=== PATIENT | female | born 1930 | race Caucasian/White ===

== ENCOUNTER 2019-06-17 16:04 | Inpatient (IN) | payer OTHER ==
[~2019-06-17] VITALS: Ht 162.6 cm; Wt 46.7 kg
[2019-06-17 16:09] VITALS: BP_SYST 135
--- NOTE | 2019-06-17 16:15 | NUR ---
Placed in room 03 . Placed on environmental monitoring technician, blood pressure machine and pulse oximeter. To gown for exam. Side rails up. Report given to Lauren JI.
[2019-06-17] MEDS ORDERED: ACET325T53 PO (16:20)
[2019-06-17] MEDS ORDERED: BACL10TA PO (16:20)
[2019-06-17] MEDS ORDERED: FER300L PO (16:20)
[2019-06-17] MEDS ORDERED: POTA8TAB4 PO (16:20)
[2019-06-17] MEDS ORDERED: AMI200 PO (16:20)
[2019-06-17] MEDS ORDERED: LEVA1.2527 INH ×2 (16:20)
[2019-06-17] MEDS ORDERED: FOLI-43 PO (16:20)
[2019-06-17] MEDS ORDERED: METO25TA6 PO (16:20)
[2019-06-17] MEDS ORDERED: ASCO500C18 PO (16:20)
[2019-06-17] MEDS ORDERED: SAW/1TAB2 PO (16:20)
[2019-06-17] MEDS ORDERED: FLUO15CR TP (16:20)
--- NOTE | 2019-06-17 16:20 | NUR ---
Medication reconciliation completed with information provided by ORQUE JARVIS. Any prior medication reconciliation on file was reviewed and corrected.
[2019-06-17] MEDS ORDERED: NS 1000 ML IV.SOLN IV ONE (16:30)
--- NOTE | 2019-06-17 16:30 | NUR ---
Pt awake, alert and oriented x4. Pt states that she has had increase in pain bilaterally. pt states that she has had increase in pain over the past few days, and her doctor stated that she had recieved labs back indicating the need for blood transfusion. Pt was transferred from current facility to our ED in order to have re-evaluation and possible blood transfusion. Pt denies shortness of breath, nausea, vomiting, chest pain or any other complaint at this time. Pt states that she cannot take traditional pain meds due to allergy and requested tylenol. Pt resting in bed comfortably, given blankets for comfort.
--- NOTE | 2019-06-17 16:55 | NUR ---
MARK Sandoval at bedside examining patient.
[2019-06-17 17:06] LABS: EOSINOPHILS # (AUTO) 0.1 K/uL (0.0-0.4); HEMOGLOBIN 7.3 g/dL (12.0-16.0); LYMPHOCYTES # (AUTO) 0.6 K/uL (1.0-5.5); WHITE BLOOD COUNT (AUTO) 6.9 K/uL (4.8-10.8)
[2019-06-17 17:11] LABS: BASOPHILS % (AUTO) 0.4 % (0.0-2.0); EOSINOPHILS % (AUTO) 1.4 % (0.0-4.0); HEMATOCRIT 23.4 % (36-48); LYMPHOCYTES % (AUTO) 8.8 % (20.5-51.5); MEAN CORPUSCULAR HEMOGLOBIN 23 pg (27-31); MEAN CORPUSCULAR HGB CONC 31 % (32-36); MEAN CORPUSCULAR VOLUME 74 fL (79.0-98.0); MONOCYTES # (AUTO) 0.5 K/uL (0.0-1.0); MONOCYTES % (AUTO) 6.8 % (1.7-9.3); NEUTROPHILS # (AUTO) 5.7 K/uL (1.8-7.7); NEUTROPHILS % (AUTO) 82.6 % (40.0-70.0); PLATELET COUNT (AUTO) 312 K/uL (130-430); RED BLOOD CELL COUNT(AUTO) 3.16 MIL/uL (4.2-6.2); RED CELL DISTRIBUTION WIDTH 20.2 % (9.0-15.0)
[2019-06-17 17:13] LABS: INR 1.1 (0.8-1.2); PROTHROMBIN TIME 10.8 SECS (9.5-12.5)
[2019-06-17 17:14] LABS: ANION GAP 4 (5-15); CALCIUM 8.6 mg/dL (8.4-11.0); CHLORIDE 102 mmol/L (98-107); CREATININE 0.62 mg/dL (0.55-1.30); GLUCOSE 107 mg/dL (70-99); POTASSIUM 3.8 mmol/L (3.5-5.1); SODIUM SERUM 133 mmol/L (136-145); UREA NITROGEN, BLOOD 17 mg/dL (8-21)
[2019-06-17 17:20] LABS: ALANINE AMINOTRANSFERASE 7 U/L (12-78); ALBUMIN 1.9 g/dL (3.4-4.8); ASPARTATE AMINOTRANSFERASE 11 U/L (10-37); TOTAL BILIRUBIN 0.2 mg/dL (0.0-1.0)
--- NOTE | 2019-06-17 17:20 | NUR ---
Pt Given additional blanket for comfort. AC adjusted to help pt maintain temperature
[2019-06-17] MEDS ORDERED: ACETAMINOPHEN 500 MG TABLET PO ONE (17:30)
[2019-06-17] MEDS ORDERED: NACL 0.9% 1,000 ML IV ONE (17:30)
--- NOTE | 2019-06-17 18:45 | NUR ---
Patient will be admitted to care of Dr. Moore. Admitted to Med Surg unit. Will go to room 103 A. Belongings list completed. Summary report printed. Report will be given at bedside.
--- NOTE | 2019-06-17 19:44 | NUR ---
Transfer to [facility]. IV present no sign or symptom of infiltration. Report Given at destination, bedside by MARGY Still. Pt aware of admission and given opportunity for questions/concerns. tranported via gurney. VSS
--- NOTE | 2019-06-17 20:02 | NUR ---
ADMISSION NOTE Received patient from ER via kenna, received report from MARGY GLASER. Patient admitted with diagnosis of ANEMIA. Patient oriented to hospital routine, call light, toileting and safety-patient verbalized understanding.
[2019-06-17 20:03] VITALS: BP_SYST 140
--- NOTE | 2019-06-17 20:10 | NUR ---
ROUNDS PATIENT RESTING COMFORTABLY IN BED, VITALS STABLE, NO COMPLAINTS OF PAIN AND DISCOMFORT AT THIS TIME. ADMISSION ASSESSMENT DONE AND DOCUMENTED. SEE FLOWSHEET. NEEDS ATTENDED TO. SAFETY AND FALL MEASURES IN PLACED. BED IN LOW AND LOCKED POSITION. CALL LIGHT PLACED WITHIN REACH.
[2019-06-17] MEDS ORDERED: LevALBUTEROL HCL 1.25 MG/0.5 ML *CONC.* VIAL.NEB (XOPENEX CONC.) INH PRN (20:15)
[2019-06-17] MEDS ORDERED: FLU VACC TS2019(65UP)/MF59C/PF 45 MCG/0.5 ML SYRINGE I.M. PRN (20:30)
[2019-06-17] MEDS ORDERED: LevALBUTEROL HCL 1.25 MG/0.5 ML *CONC.* VIAL.NEB (XOPENEX CONC.) INH SCH (21:00)
[2019-06-17] MEDS: FERROUS SULFATE 300 MG/5 ML UDC PO SCH (21:05)
[2019-06-17] MEDS: POTASSIUM CHLORIDE 8 MEQ TABLET.SA PO SCH (21:05)
[2019-06-17] MEDS: BACLOFEN 10 MG TABLET PO SCH (21:05)
[2019-06-17] MEDS: FOLIC ACID 1 MG TABLET PO SCH (21:05)
[2019-06-17] MEDS: METOPROLOL TARTRATE 25 MG TABLET PO SCH (21:07)
[2019-06-17 22:00] VITALS: BP_SYST 121
[2019-06-17] MEDS: ACETAMINOPHEN 325 MG TABLET PO SCH (22:17)
[2019-06-17] MEDS ORDERED: KCL 20 mEq in D5/0.45NS 1000mL 1,000 ML IV ONE (22:23)
[2019-06-17] MEDS: POTASSIUM CHLORIDE 20 MEQ in D5/0.45 NS 1,000 ML IV SCH (22:34)
--- NOTE | 2019-06-17 23:14 | NUR ---
BLOOD TRANSFUSION IST UNIT PRBC GIVEN ORDERED, VITALS STABLE, NO TRANSFUSION REACTION NOTED. NEEDS ATTENDED TO. CALL LIGHT PLACED WITHIN REACH.
[2019-06-18 00:28] VITALS: BP_SYST 121
--- NOTE | 2019-06-18 02:35 | NUR ---
BLOOD TRANSFUSION 2ND UNIT PRBC GIVEN ORDERED, VITALS STABLE, NO TRANSFUSION REACTION NOTED. WILL CONTINUE TO MONITOR.
[2019-06-18] MEDS: ACETAMINOPHEN 325 MG TABLET PO SCH ×2 (03:08→09:15)
--- NOTE | 2019-06-18 04:05 | NUR ---
PATIENT RESTING: Patient resting quietly. No acute distress noted. Vital signs within normal range.
--- NOTE | 2019-06-18 06:39 | NUR ---
CLOSING NOTES PATIENT AWAKE, VITALS STABLE, NO COMPLAINTS AT THIS TIME. ALL NEEDS ATTENDED TO. SAFETY MEASURES MAINTAINED. CALL LIGHT PLACED WITHIN REACH.
--- NOTE | 2019-06-18 07:30 | NUR ---
Opening note Patient resting in bed at this time, A/Ox4, no complaints of pain. Iv patent, intact, and infusing fluids as ordered. No adverse side effects noted. No infiltration noted. On ABIMBOLA mattress. On safety and aspiration precautions, HOB kept elevated, 3 side rails up, bed in lowest position, call light within reach. Patient in stable condition. Will continue to monitor.
[2019-06-18] MEDS: POTASSIUM CHLORIDE 20 MEQ in D5/0.45 NS 1,000 ML IV SCH ×2 (08:08→18:53)
[2019-06-18 08:16] VITALS: BP_SYST 165
[2019-06-18 08:35] LABS: EOSINOPHILS % (AUTO) 0.9 % (0.0-4.0); HEMATOCRIT 34.9 % (36-48); HEMOGLOBIN 11.2 g/dL (12.0-16.0); LYMPHOCYTES # (AUTO) 0.7 K/uL (1.0-5.5); LYMPHOCYTES % (AUTO) 12.5 % (20.5-51.5); MEAN CORPUSCULAR HEMOGLOBIN 25 pg (27-31); MEAN CORPUSCULAR HGB CONC 32 % (32-36); MONOCYTES # (AUTO) 0.3 K/uL (0.0-1.0); MONOCYTES % (AUTO) 5.2 % (1.7-9.3); NEUTROPHILS # (AUTO) 4.2 K/uL (1.8-7.7); NEUTROPHILS % (AUTO) 81.4 % (40.0-70.0); PLATELET COUNT (AUTO) 281 K/uL (130-430); RED BLOOD CELL COUNT(AUTO) 4.47 MIL/uL (4.2-6.2); RED CELL DISTRIBUTION WIDTH 19.6 % (9.0-15.0); WHITE BLOOD COUNT (AUTO) 5.2 K/uL (4.8-10.8)
[2019-06-18 08:38] LABS: MEAN CORPUSCULAR VOLUME 78 fL (79.0-98.0)
[2019-06-18 08:51] LABS: ANION GAP 6 (5-15); CALCIUM 8.5 mg/dL (8.4-11.0); CHLORIDE 105 mmol/L (98-107); CREATININE 0.48 mg/dL (0.55-1.30); GLUCOSE 93 mg/dL (70-99); POTASSIUM 3.4 mmol/L (3.5-5.1); SODIUM SERUM 135 mmol/L (136-145); UREA NITROGEN, BLOOD 9 mg/dL (8-21)
[2019-06-18 08:56] LABS: TOTAL IRON BIND. CAPACITY 205 ug/dL (250-450)
--- NOTE | 2019-06-18 09:00 | NUR ---
medications All morning medications given as ordered. no adverse side effects noted. No nausea, no vomiting noted.
[2019-06-18] MEDS: TRIAMCINOLONE ACETONIDE 0.1% 15 GM CREAM.GM. TP SCH (09:09)
[2019-06-18] MEDS: FERROUS SULFATE 300 MG/5 ML UDC PO SCH ×3 (09:12→20:42)
[2019-06-18] MEDS: AMIODARONE HCL 200 MG TABLET PO SCH (09:12)
[2019-06-18] MEDS: ASCORBIC ACID 500 MG TABLET PO SCH (09:12)
[2019-06-18] MEDS: POTASSIUM CHLORIDE 8 MEQ TABLET.SA PO SCH ×2 (09:13→20:42)
[2019-06-18] MEDS: METOPROLOL TARTRATE 25 MG TABLET PO SCH ×2 (09:13→20:43)
[2019-06-18] MEDS: BACLOFEN 10 MG TABLET PO SCH ×3 (09:13→20:42)
[2019-06-18] MEDS: FOLIC ACID 1 MG TABLET PO SCH ×2 (09:13→20:42)
--- NOTE | 2019-06-18 09:30 | NUR ---
DCPA and SS contact: BACK SHOE WORKER met with Pt. at bed side for DC planning assessment. She was alert and oriented. Pt. was residing at [facility] in [place] ,she would like to return there upon discharge. Pt. has insurance through [employer], [employer] supplemental income. Pt. has support from her who is her emergency contact and DPMUKESH Beltran . Pt. stated that she has a wheelchair and walker but is not utilizing either due pain, not ambulating as a result, and is dependent for her ADLs at this time. She has used [facility] in the past, she is willing to try a different agency, has no preference. No SS inquiry or concern at this time. DCP/CM/SS will remain available as needed.
--- NOTE | 2019-06-18 11:00 | NUR ---
Skin care Patient noted with BM, skin care provided, linens changed. patient in stable condition.
[2019-06-18 11:27] VITALS: BP_SYST 148
--- NOTE | 2019-06-18 11:50 | NUR ---
Stool sample stool collected for C diff, sent to lab, skin care provided. Linens changed. patient in stable condition.
--- NOTE | 2019-06-18 13:00 | NUR ---
Lunch patient sitting up in bed at this time, eating lunch. tolerating well. No nausea, no vomiting noted. No complaints of abdominal pain.
[2019-06-18] MEDS ORDERED: POTASSIUM CHLORIDE 20 MEQ TAB.PRT.SR PO ONE (14:00)
[2019-06-18] MEDS: ACETAMINOPHEN 325 MG TABLET PO PRN ×3 (14:52→22:49)
--- NOTE | 2019-06-18 14:55 | NUR ---
Flu shot patient stated she would like the flu shot, at bedside. No adverse side effects noted. no complaints of pain.
[2019-06-18 15:20] VITALS: BP_SYST 147
--- NOTE | 2019-06-18 17:09 | NUR ---
bowel movement patient noted with bowel movement, loose, greenish in color. Skin care provided. linens changed.
--- NOTE | 2019-06-18 18:58 | NUR ---
Closing note Patient resting in bed at this time, A/Ox4, complaining of pain. medication given as ordered. No adverse side effects noted. Iv patent, intact, and infusing fluids as ordered. No adverse side effects noted. No infiltration noted. On ABIMBOLA mattress. On safety and aspiration precautions, HOB kept elevated, 3 side rails up, bed in lowest position, call light within reach. Patient in stable condition. All needs met.
--- NOTE | 2019-06-18 19:35 | NUR ---
ROUNDS PATIENT AWAKE, WATCHING TV, VITALS STABLE, DENIES ANY PAIN AND DISCOMFORT AT THIS TIME. ASSESSMENT DONE AND DOCUMENTED. SEE FLOWSHEET. NEEDS ATTENDED TO. SAFETY AND FALL PRECAUTION MEASURES IN PLACED. CALL LIGHT PLACED WITHIN REACH.
[2019-06-18] MEDS: LevALBUTEROL HCL 1.25 MG/0.5 ML *CONC.* VIAL.NEB (XOPENEX CONC.) INH SCH (19:40)
[2019-06-19 00:06] VITALS: BP_SYST 142
--- NOTE | 2019-06-19 00:12 | NUR ---
PATIENT RESTING: Patient resting quietly. No acute distress noted. Vital signs within normal range.
--- NOTE | 2019-06-19 04:10 | NUR ---
ROUNDS PATIENT ASLEEP, RESPIRATIONS EVEN AND UNLABORED, NO PAIN AND DISCOMFORT NOTED. WILL CONTINUE TO MONITOR.
[2019-06-19] MEDS: ACETAMINOPHEN 325 MG TABLET PO PRN ×3 (05:00→14:56)
--- NOTE | 2019-06-19 06:53 | NUR ---
CLOSING NOTES PATIENT AWAKE, VITALS STABLE, NO PAIN AT THIS TIME. ALL NEEDS ATTENDED TO. DRESSING ON BOTH LOWER EXTREMITIES DONE. SAFETY MEASURES MAINTAINED. CALL LIGHT PLACED WITHIN REACH.
[2019-06-19] MEDS: LevALBUTEROL HCL 1.25 MG/0.5 ML *CONC.* VIAL.NEB (XOPENEX CONC.) INH SCH (07:12)
--- NOTE | 2019-06-19 07:28 | NUR ---
Opening note Patient resting in bed at this time, A/Ox4, no complaints of pain. Iv patent, intact, and infusing fluids as ordered. No adverse side effects noted. No infiltration noted. On ABIMBOLA mattress. On contact isolation precautions for history of C diff. Current C diff results pending. Dressings on lower extremities intact. On safety, and aspiration precautions, HOB kept elevated, 3 side rails up, bed in lowest position, call light within reach. Patient in stable condition. Will continue to monitor.
[2019-06-19 08:00] VITALS: BP_SYST 139
--- NOTE | 2019-06-19 09:10 | NUR ---
medications All morning medications given as ordered. no adverse side effects noted. no nausea, no vomiting noted.
[2019-06-19] MEDS: FERROUS SULFATE 300 MG/5 ML UDC PO SCH ×2 (09:24→14:57)
[2019-06-19] MEDS: AMIODARONE HCL 200 MG TABLET PO SCH (09:25)
[2019-06-19] MEDS: ASCORBIC ACID 500 MG TABLET PO SCH (09:25)
[2019-06-19] MEDS: POTASSIUM CHLORIDE 8 MEQ TABLET.SA PO SCH (09:25)
[2019-06-19] MEDS: FOLIC ACID 1 MG TABLET PO SCH (09:25)
[2019-06-19] MEDS: BACLOFEN 10 MG TABLET PO SCH ×2 (09:25→14:55)
[2019-06-19] MEDS: METOPROLOL TARTRATE 25 MG TABLET PO SCH (09:27)
[2019-06-19 09:32] LABS: BILIRUBIN,URINE NEGATIVE (NEGATIVE); BLOOD, URINE NEGATIVE (NEGATIVE); CLARITY/URINE CLEAR (CLEAR); COLOR,URINE YELLOW (YELLOW); GLUCOSE,URINE NEGATIVE (NEGATIVE); KETONES,URINE NEGATIVE (NEGATIVE); LEUKOCYTE ESTERASE ,URINE 1+ (NEGATIVE); NITRITE, URINE POSITIVE (NEGATIVE); PH,URINE 5.5 (5.0-8.0); PROTEIN URINE NEGATIVE (NEGATIVE); UROBILINOGEN,URINE 0.2 (0.2-1.0)
[2019-06-19 09:44] LABS: BACTERIA,URINE MANY /HPF (None Seen); RBC,URINE 0-3 /HPF (0-3); WBC,URINE 20-50 /HPF (0-3)
[2019-06-19] MEDS: TRIAMCINOLONE ACETONIDE 0.1% 15 GM CREAM.GM. TP SCH (10:00)
--- NOTE | 2019-06-19 10:29 | NUR ---
Nutrition Update Elio Scale 15 noted. Pt admitted for anemia. Diet: regular BMI: 19.2 kg/m2 RD to follow per nutrition care standards.
--- NOTE | 2019-06-19 11:30 | NUR ---
bowel movement patient noted with 1 bowel movement. Skin care provided. Linens changed. No other needs at this time.
[2019-06-19 12:00] VITALS: BP_SYST 139
[2019-06-19] MEDS: POTASSIUM CHLORIDE 20 MEQ in D5/0.45 NS 1,000 ML IV SCH (12:07)
--- NOTE | 2019-06-19 13:00 | NUR ---
Lunch patient sitting up in bed, eating lunch, tolerating well. No nausea, no vomiting noted.
--- NOTE | 2019-06-19 15:00 | NUR ---
Dr. linares rounds Patient resting in bed. MD at bedside, at bedside. patient to be discharged today. patient in stable condition.
--- NOTE | 2019-06-19 15:30 | NUR ---
Discharge Planning: DCP faxed pt referral to [facility] (f [phone] P [phone]). DCP also left message patient was discharging today after reviewing inquiry please call nurse station at [phone] ask for charge nurse.
--- NOTE | 2019-06-19 15:54 | NUR ---
Dietitian Recommendations * Recommend regular diet w/ Ensure Enlive TID (ONS provides 1050 kcal/day, 60 gm protein/day) * Encourage increase PO intakes LP, RD Please refer to Nutrition Assessment for details. Addendum: 06/19/19 at [address] Amended: Links added.
[2019-06-19 16:49] VITALS: BP_SYST 142; BP_SYST 146
[2019-06-19 18:19] VITALS: BP_SYST 142
--- NOTE | 2019-06-19 18:45 | NUR ---
PT TRANSFERRED Report given to kristy at [place]. Transfer packet with Transfer Orders and Medication Reconciliation form given to EMT with report. Exitcare provided. [facility] ID band removed, replaced with ID band with pt's name and . IV catheter removed, intact and dressing applied, no active bleeding. All belongings sent with patient. Patient left floor via gurney escorted by EMT in no distress.
== END 2019-06-19 18:45 | DRG 811 ==
LOC: SED 16:04 → SMU 18:40
PROVIDERS: ADMIT Family Medicine; ATTEND Family Medicine
PROC: 30233N1 Transfusion of Nonautologous Red Blood Cells into Peripheral Vein, Percutaneous Approach (ICD-10-PCS; principal; 2019-06-17)
DX: D50.9 Iron deficiency anemia, unspecified (principal); E43 Unspecified severe protein-calorie malnutrition; Z68.1 Body mass index [BMI] 19.9 or less, adult; I48.91 Unspecified atrial fibrillation; E86.0 Dehydration; I10 Essential (primary) hypertension; M19.90 Unspecified osteoarthritis, unspecified site; Z90.11 Acquired absence of right breast and nipple; Z88.1 Allergy status to other antibiotic agents; Z88.2 Allergy status to sulfonamides; Z91.040 Latex allergy status; Z79.899 Other long term (current) drug therapy; Z90.49 Acquired absence of other specified parts of digestive tract
CPT/HCPCS: 36415; 36430; 71045; 80048; 80053; 81000-TC; 83540-TC; 83550-TC; 83605; 85025; 85610-TC; 85730-TC; 86886; 86900; 86901; 86920; 87040-TC; 87081; 87086; 87186-TC; 87230-TC; 93005; 94640; 94760; 99285; J3480; J7030; J7050; J7612; P9021

== ENCOUNTER 2019-07-07 17:10 | Inpatient (IN) | payer OTHER ==
[~2019-07-07] VITALS: Ht 165.1 cm; Wt 44.9 kg
[2019-07-07] MEDS: D5/0.45 NS 1,000 ML IV SCH (05:37)
[2019-07-07 17:10] VITALS: BP_SYST 143
[~2019-07-07 17:10] MED LIST: ACET325T53 PO; AMI200 PO; ASCO500C18 PO; BACL10TA PO; FER300L PO; FLUO15CR TP; FOLI-43 PO; LEVA1.2527 INH; METO25TA6 PO; POTA8TAB4 PO; SAW/1TAB2 PO
[2019-07-07] MEDS ORDERED: NS 500 ML IV ONE ×2 (17:30→19:30)
[2019-07-07 17:56] LABS: BASOPHILS % (AUTO) 0.1 % (0.0-2.0); EOSINOPHILS % (AUTO) 0.7 % (0.0-4.0); HEMATOCRIT 30.5 % (36-48); HEMOGLOBIN 9.7 g/dL (12.0-16.0); LYMPHOCYTES # (AUTO) 0.7 K/uL (1.0-5.5); LYMPHOCYTES % (AUTO) 9.4 % (20.5-51.5); MEAN CORPUSCULAR HEMOGLOBIN 25 pg (27-31); MEAN CORPUSCULAR HGB CONC 32 % (32-36); MEAN CORPUSCULAR VOLUME 78 fL (79.0-98.0); MONOCYTES # (AUTO) 0.5 K/uL (0.0-1.0); MONOCYTES % (AUTO) 7.1 % (1.7-9.3); NEUTROPHILS % (AUTO) 82.7 % (40.0-70.0); PLATELET COUNT (AUTO) 179 K/uL (130-430); RED BLOOD CELL COUNT(AUTO) 3.92 MIL/uL (4.2-6.2); RED CELL DISTRIBUTION WIDTH 19.5 % (9.0-15.0); WHITE BLOOD COUNT (AUTO) 7.2 K/uL (4.8-10.8)
[2019-07-07 18:06] LABS: ANION GAP 10 (5-15); CALCIUM 11.8 mg/dL (8.4-11.0); CHLORIDE 103 mmol/L (98-107); CREATININE 0.61 mg/dL (0.55-1.30); GLUCOSE 87 mg/dL (70-99); POTASSIUM 3.1 mmol/L (3.5-5.1); SODIUM SERUM 140 mmol/L (136-145); UREA NITROGEN, BLOOD 11 mg/dL (8-21)
[2019-07-07 18:10] LABS: INR 1.2 (0.8-1.2); PROTHROMBIN TIME 11.8 SECS (9.5-12.5)
[2019-07-07 18:11] LABS: ALANINE AMINOTRANSFERASE 12 U/L (12-78); ALBUMIN 1.9 g/dL (3.4-4.8); ASPARTATE AMINOTRANSFERASE 13 U/L (10-37); TOTAL BILIRUBIN 0.4 mg/dL (0.0-1.0)
[2019-07-07] MEDS ORDERED: CALCITONIN SALMON,SYNTHETIC 200 UNITS/ML VIAL IM ONE (19:00)
[2019-07-07] MEDS ORDERED: KCL 20 mEq in NS 1000 mL 1,000 ML IV ONE (19:15)
[2019-07-07] MEDS ORDERED: ONDANSETRON HCL 4 MG/2 ML VIAL IVP PRN (22:00)
[2019-07-07] MEDS ORDERED: LORazepam 2 MG/ML VIAL IVP PRN (22:00)
[2019-07-07] MEDS ORDERED: MORPHINE 4 MG/ML INJ. SYRINGE IVP PRN (22:00)
[2019-07-07 22:02] VITALS: BP_SYST 115
[2019-07-08 01:37] VITALS: BP_SYST 120
[2019-07-08] MEDS ORDERED: DILTIAZEM HCL 25 MG/5 ML VIAL IVP PRN (03:30)
[2019-07-08] MEDS: D5/0.45 NS 1,000 ML IV SCH (07:00)
[2019-07-08 07:24] LABS: EOSINOPHILS % (AUTO) 0.2 % (0.0-4.0); HEMATOCRIT 29.5 % (36-48); HEMOGLOBIN 9.5 g/dL (12.0-16.0); LYMPHOCYTES # (AUTO) 0.7 K/uL (1.0-5.5); LYMPHOCYTES % (AUTO) 8.5 % (20.5-51.5); MEAN CORPUSCULAR HEMOGLOBIN 25 pg (27-31); MEAN CORPUSCULAR HGB CONC 32 % (32-36); MEAN CORPUSCULAR VOLUME 78 fL (79.0-98.0); MONOCYTES # (AUTO) 0.5 K/uL (0.0-1.0); MONOCYTES % (AUTO) 6.1 % (1.7-9.3); NEUTROPHILS % (AUTO) 85.2 % (40.0-70.0); PLATELET COUNT (AUTO) 193 K/uL (130-430); RED BLOOD CELL COUNT(AUTO) 3.81 MIL/uL (4.2-6.2); RED CELL DISTRIBUTION WIDTH 19.5 % (9.0-15.0); WHITE BLOOD COUNT (AUTO) 8.2 K/uL (4.8-10.8)
[2019-07-08 07:44] LABS: ALANINE AMINOTRANSFERASE 10 U/L (12-78); ALBUMIN 1.7 g/dL (3.4-4.8); ANION GAP 8 (5-15); ASPARTATE AMINOTRANSFERASE 13 U/L (10-37); CALCIUM 9.9 mg/dL (8.4-11.0); CHLORIDE 109 mmol/L (98-107); CREATININE 0.56 mg/dL (0.55-1.30); GLUCOSE 102 mg/dL (70-99); PHOSPHORUS 1.8 mg/dL (2.7-4.5); SODIUM SERUM 143 mmol/L (136-145); TOTAL BILIRUBIN 0.4 mg/dL (0.0-1.0); UREA NITROGEN, BLOOD 8 mg/dL (8-21)
[2019-07-08 08:00] VITALS: BP_SYST 117
[2019-07-08] MEDS ORDERED: DILTIAZEM HCL 25 MG/5 ML VIAL IVP ONE ×2 (08:45→20:00)
[2019-07-08 11:02] VITALS: BP_SYST 132
[2019-07-08] MEDS ORDERED: DILTIAZEM HCL 25 MG/5 ML VIAL IVP SCH (14:00)
[2019-07-08] MEDS ORDERED: POTASSIUM CHLORIDE 40 MEQ in NS 250 ML IV ONE (14:15)
[2019-07-08] MEDS ORDERED: NS 500 ML IV ONE (14:15)
[2019-07-08] MEDS: 0.45% NACL 1,000 ML IV SCH (14:59)
[2019-07-08] MEDS ORDERED: PIPERACILLIN/TAZO 3.375/DEX-IS 50 ML IV ONE (15:00)
[2019-07-08 15:23] VITALS: BP_SYST 124
[2019-07-08] MEDS ORDERED: NS 500 ML IV SCH (17:45)
[2019-07-08] MEDS ORDERED: INSULIN REGULAR, HUMAN 100 UNITS/ML, 10 ML VIAL (humuLIN R) SUBCUT PRN (18:00)
[2019-07-08] MEDS ORDERED: DEXTROSE 50% JECT 50 ML DISP.SYRIN IVP PRN (18:00)
[2019-07-08] MEDS ORDERED: *TPN PER PHARMACY XX PRN (18:00)
[2019-07-08 19:49] VITALS: BP_SYST 125
[2019-07-09] MEDS: PIPERACILLIN/TAZO 3.375/DEX-IS 50 ML IV SCH ×4 (00:03→18:14)
[2019-07-09] MEDS: DILTIAZEM HCL 25 MG/5 ML VIAL IVP SCH ×4 (00:04→20:21)
[2019-07-09 03:04] VITALS: BP_SYST 103
[2019-07-09] MEDS: 0.45% NACL 1,000 ML IV SCH (06:05)
[2019-07-09 08:00] LABS: BASOPHILS % (AUTO) 0.2 % (0.0-2.0); EOSINOPHILS % (AUTO) 0.3 % (0.0-4.0); HEMATOCRIT 29.5 % (36-48); HEMOGLOBIN 9.5 g/dL (12.0-16.0); LYMPHOCYTES # (AUTO) 0.9 K/uL (1.0-5.5); LYMPHOCYTES % (AUTO) 8.9 % (20.5-51.5); MEAN CORPUSCULAR HEMOGLOBIN 25 pg (27-31); MEAN CORPUSCULAR HGB CONC 32 % (32-36); MEAN CORPUSCULAR VOLUME 78 fL (79.0-98.0); MONOCYTES # (AUTO) 0.8 K/uL (0.0-1.0); MONOCYTES % (AUTO) 7.9 % (1.7-9.3); NEUTROPHILS # (AUTO) 8.8 K/uL (1.8-7.7); NEUTROPHILS % (AUTO) 82.7 % (40.0-70.0); PLATELET COUNT (AUTO) 192 K/uL (130-430); RED BLOOD CELL COUNT(AUTO) 3.78 MIL/uL (4.2-6.2); RED CELL DISTRIBUTION WIDTH 19.1 % (9.0-15.0); WHITE BLOOD COUNT (AUTO) 10.6 K/uL (4.8-10.8)
[2019-07-09 08:04] LABS: ALANINE AMINOTRANSFERASE 10 U/L (12-78); ALBUMIN 1.5 g/dL (3.4-4.8); ANION GAP 3 (5-15); ASPARTATE AMINOTRANSFERASE 16 U/L (10-37); CALCIUM 9.3 mg/dL (8.4-11.0); CHLORIDE 109 mmol/L (98-107); CREATININE 0.56 mg/dL (0.55-1.30); GLUCOSE 96 mg/dL (70-99); SODIUM SERUM 141 mmol/L (136-145); TOTAL BILIRUBIN 0.5 mg/dL (0.0-1.0); UREA NITROGEN, BLOOD 6 mg/dL (8-21)
[2019-07-09 08:30] VITALS: BP_SYST 118
[2019-07-09 08:59] LABS: PHOSPHORUS 1.6 mg/dL (2.7-4.5); TRIGLYCERIDES 48 mg/dL (30-150)
[2019-07-09 09:04] LABS: POTASSIUM 2.8 mmol/L (3.5-5.1)
[2019-07-09] MEDS ORDERED: MAGNESIUM SULFATE 4 GM in D5W 250 ML IV ONE (09:15)
[2019-07-09] MEDS ORDERED: KCL 40 mEq in 100 mL (PREMIX) 100 ML IV ONE (09:30)
[2019-07-09] MEDS ORDERED: POTASSIUM CHLORIDE 40 MEQ in NS 250 ML IV ONE (09:30)
[2019-07-09 12:28] VITALS: BP_SYST 104
[2019-07-09] MEDS ORDERED: DIGOXIN 0.5 MG/2 ML AMP IVP ONE (16:15)
[2019-07-09 16:42] LABS: ANION GAP 4 (5-15); CALCIUM 9.2 mg/dL (8.4-11.0); CHLORIDE 110 mmol/L (98-107); CREATININE 0.58 mg/dL (0.55-1.30); GLUCOSE 97 mg/dL (70-99); PHOSPHORUS 1.7 mg/dL (2.7-4.5); POTASSIUM 3.3 mmol/L (3.5-5.1); SODIUM SERUM 142 mmol/L (136-145); UREA NITROGEN, BLOOD 6 mg/dL (8-21)
[2019-07-09 16:45] VITALS: BP_SYST 103
[2019-07-09 20:00] VITALS: BP_SYST 127
[2019-07-09] MEDS ORDERED: K PHOS IV SCH ×8 (21:00)
[2019-07-09] MEDS ORDERED: TPN PERIPHERAL IV SCH ×8 (21:00)
[2019-07-09] MEDS ORDERED: MAGNESIUM SULFATE IV SCH ×8 (21:00)
[2019-07-09] MEDS ORDERED: MVI IV SCH ×8 (21:00)
[2019-07-09] MEDS ORDERED: [UNRECOGNIZED DRUG - OTHER] IV SCH ×8 (21:00)
[2019-07-09] MEDS: FAT EMULSIONS 250 ML IV SCH (21:44)
[2019-07-09 23:35] VITALS: BP_SYST 119
[2019-07-10] MEDS: PIPERACILLIN/TAZO 3.375/DEX-IS 50 ML IV SCH ×3 (01:33→12:46)
[2019-07-10] MEDS: 0.45% NACL 1,000 ML IV SCH ×2 (01:33→16:00)
[2019-07-10] MEDS: DILTIAZEM HCL 25 MG/5 ML VIAL IVP SCH ×4 (01:35→17:08)
[2019-07-10 08:02] LABS: BASOPHILS % (AUTO) 0.3 % (0.0-2.0); EOSINOPHILS # (AUTO) 0.1 K/uL (0.0-0.4); HEMOGLOBIN 8.3 g/dL (12.0-16.0); LYMPHOCYTES # (AUTO) 0.7 K/uL (1.0-5.5); LYMPHOCYTES % (AUTO) 7.1 % (20.5-51.5); MEAN CORPUSCULAR HEMOGLOBIN 25 pg (27-31); MEAN CORPUSCULAR HGB CONC 32 % (32-36); MEAN CORPUSCULAR VOLUME 78 fL (79.0-98.0); MONOCYTES # (AUTO) 0.5 K/uL (0.0-1.0); NEUTROPHILS # (AUTO) 8.5 K/uL (1.8-7.7); NEUTROPHILS % (AUTO) 86.6 % (40.0-70.0); PLATELET COUNT (AUTO) 188 K/uL (130-430); RED BLOOD CELL COUNT(AUTO) 3.33 MIL/uL (4.2-6.2); RED CELL DISTRIBUTION WIDTH 18.9 % (9.0-15.0); WHITE BLOOD COUNT (AUTO) 9.8 K/uL (4.8-10.8)
[2019-07-10 08:24] LABS: ALANINE AMINOTRANSFERASE 7 U/L (12-78); ALBUMIN 1.3 g/dL (3.4-4.8); ANION GAP 5 (5-15); ASPARTATE AMINOTRANSFERASE 16 U/L (10-37); CALCIUM 9.1 mg/dL (8.4-11.0); CHLORIDE 108 mmol/L (98-107); CREATININE 0.55 mg/dL (0.55-1.30); GLUCOSE 117 mg/dL (70-99); PHOSPHORUS 1.9 mg/dL (2.7-4.5); SODIUM SERUM 142 mmol/L (136-145); TOTAL BILIRUBIN 0.4 mg/dL (0.0-1.0); UREA NITROGEN, BLOOD 7 mg/dL (8-21)
[2019-07-10 08:30] LABS: POTASSIUM 2.8 mmol/L (3.5-5.1)
[2019-07-10] MEDS: DIGOXIN 0.125 MG TABLET PO SCH (09:00)
[2019-07-10 09:04] LABS: ERYTHROCYTE SEDIMENTATION RATE 48 MM/HR (0-20)
[2019-07-10 10:00] VITALS: BP_SYST 118
[2019-07-10 10:06] LABS: C-REACTIVE PROTEIN QUANT 18.5 mg/dL (0-0.5)
[2019-07-10] MEDS ORDERED: POTASSIUM CHLORIDE 40 MEQ in NS 250 ML IV ONE (10:30)
[2019-07-10 12:45] VITALS: BP_SYST 102
[2019-07-10 15:05] VITALS: BP_SYST 129
[2019-07-10] MEDS: PIPERACILLIN/TAZO 2.25G/DEX-IS 50 ML IV SCH (17:11)
[2019-07-10 20:00] VITALS: BP_SYST 113
[2019-07-10] MEDS ORDERED: MAGNESIUM SULFATE IV SCH ×9 (21:00)
[2019-07-10] MEDS ORDERED: MVI IV SCH ×9 (21:00)
[2019-07-10] MEDS ORDERED: [UNRECOGNIZED DRUG - OTHER] IV SCH ×9 (21:00)
[2019-07-10] MEDS ORDERED: K PHOS IV SCH ×9 (21:00)
[2019-07-10] MEDS ORDERED: TPN PERIPHERAL IV SCH ×9 (21:00)
[2019-07-10] MEDS: FAT EMULSIONS 250 ML IV SCH (22:10)
[2019-07-10 23:53] VITALS: BP_SYST 121
[2019-07-11] MEDS: PIPERACILLIN/TAZO 2.25G/DEX-IS 50 ML IV SCH ×5 (00:06→23:44)
[2019-07-11] MEDS: DILTIAZEM HCL 25 MG/5 ML VIAL IVP SCH ×5 (00:08→23:47)
[2019-07-11 08:00] LABS: ALBUMIN 1.2 g/dL (3.4-4.8); ANION GAP 5 (5-15); ASPARTATE AMINOTRANSFERASE 14 U/L (10-37); CALCIUM 8.9 mg/dL (8.4-11.0); CHLORIDE 107 mmol/L (98-107); CREATININE 0.55 mg/dL (0.55-1.30); GLUCOSE 123 mg/dL (70-99); PHOSPHORUS 2.8 mg/dL (2.7-4.5); SODIUM SERUM 140 mmol/L (136-145); TOTAL BILIRUBIN 0.5 mg/dL (0.0-1.0); UREA NITROGEN, BLOOD 10 mg/dL (8-21)
[2019-07-11 08:15] LABS: ALANINE AMINOTRANSFERASE 7 U/L (12-78)
[2019-07-11 08:45] VITALS: BP_SYST 126
[2019-07-11] MEDS: DIGOXIN 0.125 MG TABLET PO SCH (09:00)
[2019-07-11 11:18] VITALS: BP_SYST 110
[2019-07-11 15:30] VITALS: BP_SYST 112
[2019-07-11 20:00] VITALS: BP_SYST 104
[2019-07-11] MEDS ORDERED: MAGNESIUM SULFATE IV SCH ×9 (21:00)
[2019-07-11] MEDS ORDERED: TPN PERIPHERAL IV SCH ×9 (21:00)
[2019-07-11] MEDS ORDERED: K PHOS IV SCH ×9 (21:00)
[2019-07-11] MEDS ORDERED: MVI IV SCH ×9 (21:00)
[2019-07-11] MEDS ORDERED: [UNRECOGNIZED DRUG - OTHER] IV SCH ×9 (21:00)
[2019-07-11] MEDS: FAT EMULSIONS 250 ML IV SCH (22:38)
[2019-07-12 00:11] VITALS: BP_SYST 109
[2019-07-12] MEDS: PIPERACILLIN/TAZO 2.25G/DEX-IS 50 ML IV SCH ×4 (05:44→23:43)
[2019-07-12] MEDS: DILTIAZEM HCL 25 MG/5 ML VIAL IVP SCH ×4 (06:00→23:45)
[2019-07-12 07:15] LABS: BASOPHILS % (AUTO) 0.1 % (0.0-2.0); EOSINOPHILS # (AUTO) 0.2 K/uL (0.0-0.4); EOSINOPHILS % (AUTO) 2.1 % (0.0-4.0); HEMATOCRIT 23.2 % (36-48); LYMPHOCYTES # (AUTO) 0.9 K/uL (1.0-5.5); LYMPHOCYTES % (AUTO) 11.6 % (20.5-51.5); MEAN CORPUSCULAR HEMOGLOBIN 25 pg (27-31); MEAN CORPUSCULAR HGB CONC 32 % (32-36); MEAN CORPUSCULAR VOLUME 77 fL (79.0-98.0); MONOCYTES # (AUTO) 0.7 K/uL (0.0-1.0); MONOCYTES % (AUTO) 8.4 % (1.7-9.3); NEUTROPHILS # (AUTO) 6.1 K/uL (1.8-7.7); NEUTROPHILS % (AUTO) 77.8 % (40.0-70.0); PLATELET COUNT (AUTO) 147 K/uL (130-430); RED BLOOD CELL COUNT(AUTO) 3.01 MIL/uL (4.2-6.2); RED CELL DISTRIBUTION WIDTH 18.7 % (9.0-15.0); WHITE BLOOD COUNT (AUTO) 7.8 K/uL (4.8-10.8)
[2019-07-12 07:33] LABS: ALANINE AMINOTRANSFERASE 10 U/L (12-78); ALBUMIN 1.1 g/dL (3.4-4.8); ANION GAP 4 (5-15); ASPARTATE AMINOTRANSFERASE 22 U/L (10-37); CALCIUM 8.8 mg/dL (8.4-11.0); CHLORIDE 105 mmol/L (98-107); GLUCOSE 116 mg/dL (70-99); PHOSPHORUS 3.2 mg/dL (2.7-4.5); POTASSIUM 3.1 mmol/L (3.5-5.1); SODIUM SERUM 139 mmol/L (136-145); TOTAL BILIRUBIN 0.4 mg/dL (0.0-1.0); UREA NITROGEN, BLOOD 11 mg/dL (8-21)
[2019-07-12 07:41] LABS: HEMOGLOBIN 7.5 g/dL (12.0-16.0)
[2019-07-12 07:56] VITALS: BP_SYST 116
[2019-07-12] MEDS: DIGOXIN 0.125 MG TABLET PO SCH (08:07)
[2019-07-12 08:13] LABS: C-REACTIVE PROTEIN QUANT 16.6 mg/dL (0-0.5)
[2019-07-12 08:18] LABS: ERYTHROCYTE SEDIMENTATION RATE 75 MM/HR (0-20)
[2019-07-12 12:30] VITALS: BP_SYST 119
[2019-07-12] MEDS ORDERED: MEPERIDINE HCL/PF 25 MG/ML DISP.SYRIN ONE ×2 (13:55)
[2019-07-12] MEDS ORDERED: MIDAZOLAM HCL 5 MG/5 ML VIAL ONE (13:55)
[2019-07-12] MEDS ORDERED: SIMETHICONE 40 MG/0.6 ML ML ONE (13:56)
[2019-07-12 17:08] VITALS: BP_SYST 116
[2019-07-12 17:20] VITALS: BP_SYST 112
[2019-07-12] MEDS ORDERED: MEPERIDINE HCL/PF 25 MG/ML DISP.SYRIN IVP ONE (17:30)
[2019-07-12] MEDS ORDERED: MIDAZOLAM HCL 2 MG/2 ML VIAL (VERSED) IVP ONE (17:45)
[2019-07-12] MEDS ORDERED: MAGNESIUM SULFATE IV SCH ×9 (21:00)
[2019-07-12] MEDS ORDERED: MVI IV SCH ×9 (21:00)
[2019-07-12] MEDS ORDERED: K PHOS IV SCH ×9 (21:00)
[2019-07-12] MEDS ORDERED: TPN PERIPHERAL IV SCH ×9 (21:00)
[2019-07-12] MEDS ORDERED: [UNRECOGNIZED DRUG - OTHER] IV SCH ×9 (21:00)
[2019-07-12 21:46] VITALS: BP_SYST 139
[2019-07-12] MEDS: FAT EMULSIONS 250 ML IV SCH (22:00)
[2019-07-13 00:20] VITALS: BP_SYST 138
[2019-07-13] MEDS: PIPERACILLIN/TAZO 2.25G/DEX-IS 50 ML IV SCH ×3 (05:50→17:42)
[2019-07-13] MEDS: DILTIAZEM HCL 25 MG/5 ML VIAL IVP SCH ×3 (05:51→17:43)
[2019-07-13 07:21] LABS: BASOPHILS % (AUTO) 0.1 % (0.0-2.0); EOSINOPHILS # (AUTO) 0.2 K/uL (0.0-0.4); EOSINOPHILS % (AUTO) 1.6 % (0.0-4.0); HEMATOCRIT 25.8 % (36-48); HEMOGLOBIN 8.3 g/dL (12.0-16.0); LYMPHOCYTES % (AUTO) 10.4 % (20.5-51.5); MEAN CORPUSCULAR HEMOGLOBIN 25 pg (27-31); MEAN CORPUSCULAR HGB CONC 32 % (32-36); MEAN CORPUSCULAR VOLUME 78 fL (79.0-98.0); MONOCYTES # (AUTO) 0.6 K/uL (0.0-1.0); MONOCYTES % (AUTO) 6.5 % (1.7-9.3); NEUTROPHILS # (AUTO) 7.6 K/uL (1.8-7.7); NEUTROPHILS % (AUTO) 81.4 % (40.0-70.0); PLATELET COUNT (AUTO) 170 K/uL (130-430); RED CELL DISTRIBUTION WIDTH 18.8 % (9.0-15.0); WHITE BLOOD COUNT (AUTO) 9.4 K/uL (4.8-10.8)
[2019-07-13 07:31] LABS: ALANINE AMINOTRANSFERASE 19 U/L (12-78); ANION GAP 3 (5-15); ASPARTATE AMINOTRANSFERASE 25 U/L (10-37); CALCIUM 8.8 mg/dL (8.4-11.0); CHLORIDE 104 mmol/L (98-107); CREATININE 0.54 mg/dL (0.55-1.30); GLUCOSE 128 mg/dL (70-99); PHOSPHORUS 3.1 mg/dL (2.7-4.5); POTASSIUM 3.5 mmol/L (3.5-5.1); SODIUM SERUM 136 mmol/L (136-145); TOTAL BILIRUBIN 0.5 mg/dL (0.0-1.0); TRIGLYCERIDES 56 mg/dL (30-150); UREA NITROGEN, BLOOD 12 mg/dL (8-21)
[2019-07-13 07:40] LABS: C-REACTIVE PROTEIN QUANT 17.7 mg/dL (0-0.5)
[2019-07-13 08:06] VITALS: BP_SYST 120
[2019-07-13 08:14] LABS: ERYTHROCYTE SEDIMENTATION RATE 75 MM/HR (0-20)
[2019-07-13] MEDS: DIGOXIN 0.125 MG TABLET PO SCH (08:27)
[2019-07-13] MEDS ORDERED: FUROSEMIDE 20 MG/2 ML VIAL IVP ONE (09:30)
[2019-07-13] MEDS ORDERED: POTASSIUM CHLORIDE 20 MEQ/PKT PACKET GT ONE (09:30)
[2019-07-13 12:32] VITALS: BP_SYST 154
[2019-07-13 15:15] VITALS: BP_SYST 160
[2019-07-13 20:00] VITALS: BP_SYST 122
[2019-07-14] MEDS: DILTIAZEM HCL 25 MG/5 ML VIAL IVP SCH ×4 (00:13→18:16)
[2019-07-14] MEDS: PIPERACILLIN/TAZO 2.25G/DEX-IS 50 ML IV SCH ×4 (00:14→18:18)
[2019-07-14 00:38] VITALS: BP_SYST 115
[2019-07-14 07:20] VITALS: BP_SYST 124
[2019-07-14 07:25] LABS: BASOPHILS % (AUTO) 0.2 % (0.0-2.0); EOSINOPHILS # (AUTO) 0.1 K/uL (0.0-0.4); EOSINOPHILS % (AUTO) 1.6 % (0.0-4.0); HEMATOCRIT 23.7 % (36-48); HEMOGLOBIN 7.7 g/dL (12.0-16.0); LYMPHOCYTES # (AUTO) 0.7 K/uL (1.0-5.5); LYMPHOCYTES % (AUTO) 9.1 % (20.5-51.5); MEAN CORPUSCULAR HEMOGLOBIN 25 pg (27-31); MEAN CORPUSCULAR HGB CONC 32 % (32-36); MEAN CORPUSCULAR VOLUME 77 fL (79.0-98.0); MONOCYTES # (AUTO) 0.6 K/uL (0.0-1.0); MONOCYTES % (AUTO) 7.5 % (1.7-9.3); NEUTROPHILS % (AUTO) 81.6 % (40.0-70.0); PLATELET COUNT (AUTO) 207 K/uL (130-430); RED BLOOD CELL COUNT(AUTO) 3.07 MIL/uL (4.2-6.2); RED CELL DISTRIBUTION WIDTH 18.6 % (9.0-15.0); WHITE BLOOD COUNT (AUTO) 7.4 K/uL (4.8-10.8)
[2019-07-14 07:30] LABS: ANION GAP 4 (5-15); CALCIUM 8.8 mg/dL (8.4-11.0); CHLORIDE 105 mmol/L (98-107); CREATININE 0.53 mg/dL (0.55-1.30); GLUCOSE 114 mg/dL (70-99); POTASSIUM 3.6 mmol/L (3.5-5.1); SODIUM SERUM 138 mmol/L (136-145); UREA NITROGEN, BLOOD 12 mg/dL (8-21)
[2019-07-14 08:03] LABS: C-REACTIVE PROTEIN QUANT 16.7 mg/dL (0-0.5)
[2019-07-14] MEDS: DIGOXIN 0.125 MG TABLET PO SCH (09:00)
[2019-07-14 11:07] LABS: ERYTHROCYTE SEDIMENTATION RATE 101 MM/HR (0-20)
[2019-07-14 11:29] VITALS: BP_SYST 118
[2019-07-14] MEDS: CARVEDILOL 3.125 MG TABLET (COREG) PO ONE ×2 (12:03→12:26)
[2019-07-14 16:35] VITALS: BP_SYST 138
[2019-07-14] MEDS: MORPHINE 2 MG/ML INJ. SYRINGE IVP PRN (18:15)
[2019-07-14] MEDS: CARVEDILOL 3.125 MG TABLET (COREG) PO SCH (21:40)
[2019-07-14 22:47] VITALS: BP_SYST 139
[2019-07-15] MEDS: PIPERACILLIN/TAZO 2.25G/DEX-IS 50 ML IV SCH ×5 (01:12→23:22)
[2019-07-15] MEDS: DILTIAZEM HCL 25 MG/5 ML VIAL IVP SCH ×5 (01:17→23:23)
[2019-07-15 01:20] VITALS: BP_SYST 116
[2019-07-15 07:16] LABS: BASOPHILS % (AUTO) 0.2 % (0.0-2.0); EOSINOPHILS # (AUTO) 0.1 K/uL (0.0-0.4); EOSINOPHILS % (AUTO) 1.3 % (0.0-4.0); HEMATOCRIT 22.1 % (36-48); HEMOGLOBIN 7.2 g/dL (12.0-16.0); LYMPHOCYTES # (AUTO) 0.7 K/uL (1.0-5.5); MEAN CORPUSCULAR HEMOGLOBIN 25 pg (27-31); MEAN CORPUSCULAR HGB CONC 33 % (32-36); MEAN CORPUSCULAR VOLUME 77 fL (79.0-98.0); MONOCYTES # (AUTO) 0.7 K/uL (0.0-1.0); MONOCYTES % (AUTO) 8.8 % (1.7-9.3); NEUTROPHILS # (AUTO) 6.8 K/uL (1.8-7.7); NEUTROPHILS % (AUTO) 81.7 % (40.0-70.0); PLATELET COUNT (AUTO) 221 K/uL (130-430); RED BLOOD CELL COUNT(AUTO) 2.86 MIL/uL (4.2-6.2); RED CELL DISTRIBUTION WIDTH 18.4 % (9.0-15.0); WHITE BLOOD COUNT (AUTO) 8.3 K/uL (4.8-10.8)
[2019-07-15 07:55] LABS: ANION GAP 4 (5-15); CALCIUM 9.1 mg/dL (8.4-11.0); CHLORIDE 107 mmol/L (98-107); CREATININE 0.53 mg/dL (0.55-1.30); GLUCOSE 146 mg/dL (70-99); POTASSIUM 4.1 mmol/L (3.5-5.1); SODIUM SERUM 140 mmol/L (136-145); UREA NITROGEN, BLOOD 15 mg/dL (8-21)
[2019-07-15 08:08] VITALS: BP_SYST 117
[2019-07-15 08:31] LABS: C-REACTIVE PROTEIN QUANT 14.5 mg/dL (0-0.5)
[2019-07-15 08:53] LABS: ERYTHROCYTE SEDIMENTATION RATE 107 MM/HR (0-20)
[2019-07-15] MEDS: CARVEDILOL 3.125 MG TABLET (COREG) PO SCH ×2 (09:01→21:26)
[2019-07-15] MEDS: DIGOXIN 0.125 MG TABLET PO SCH (09:02)
[2019-07-15] MEDS: MORPHINE 2 MG/ML INJ. SYRINGE IVP PRN ×2 (09:05→15:38)
[2019-07-15 12:39] VITALS: BP_SYST 125
[2019-07-15] MEDS ORDERED: DIPHENHYDRAMINE INJ 50 MG/ML VIAL IVP ONE (14:00)
[2019-07-15] MEDS ORDERED: ACETAMINOPHEN 325 MG TABLET ONE (14:12)
[2019-07-15] MEDS ORDERED: DIPHENHYDRAMINE INJ 50 MG/ML VIAL ONE (14:13)
[2019-07-15 16:18] VITALS: BP_SYST 116
[2019-07-15 20:00] VITALS: BP_SYST 117
[2019-07-15] MEDS: ACETAMINOPHEN 650 MG/20.3 ML UDC GT PRN (22:40)
[2019-07-16] VITALS (9 sets, daily range): BP systolic 98–128
[2019-07-16] MEDS: PIPERACILLIN/TAZO 2.25G/DEX-IS 50 ML IV SCH ×3 (06:15→17:35)
[2019-07-16 06:16] LABS: BASOPHILS % (AUTO) 0.5 % (0.0-2.0); EOSINOPHILS # (AUTO) 0.1 K/uL (0.0-0.4); EOSINOPHILS % (AUTO) 3.1 % (0.0-4.0); HEMATOCRIT 37.5 % (36-48); HEMOGLOBIN 12.4 g/dL (12.0-16.0); LYMPHOCYTES # (AUTO) 0.7 K/uL (1.0-5.5); LYMPHOCYTES % (AUTO) 22.5 % (20.5-51.5); MEAN CORPUSCULAR HEMOGLOBIN 33 pg (27-31); MEAN CORPUSCULAR HGB CONC 33 % (32-36); MEAN CORPUSCULAR VOLUME 100 fL (79.0-98.0); MONOCYTES # (AUTO) 0.4 K/uL (0.0-1.0); MONOCYTES % (AUTO) 13.4 % (1.7-9.3); NEUTROPHILS # (AUTO) 1.8 K/uL (1.8-7.7); NEUTROPHILS % (AUTO) 60.5 % (40.0-70.0); PLATELET COUNT (AUTO) 131 K/uL (130-430); RED BLOOD CELL COUNT(AUTO) 3.77 MIL/uL (4.2-6.2); RED CELL DISTRIBUTION WIDTH 17.1 % (9.0-15.0)
[2019-07-16] MEDS: DILTIAZEM HCL 25 MG/5 ML VIAL IVP SCH ×3 (06:17→17:33)
[2019-07-16 06:52] LABS: C-REACTIVE PROTEIN QUANT 1.7 mg/dL (0-0.5); CALCIUM 8.1 mg/dL (8.4-11.0); CHLORIDE 103 mmol/L (98-107); GLUCOSE 82 mg/dL (70-99); POTASSIUM 3.4 mmol/L (3.5-5.1); SODIUM SERUM 139 mmol/L (136-145); UREA NITROGEN, BLOOD 16 mg/dL (8-21)
[2019-07-16 07:02] LABS: ANION GAP < 3 (5-15)
[2019-07-16 07:18] LABS: WHITE BLOOD COUNT (AUTO) 2.9 K/uL (4.8-10.8)
[2019-07-16 09:04] LABS: ERYTHROCYTE SEDIMENTATION RATE 3 MM/HR (0-20)
[2019-07-16] MEDS: MORPHINE 2 MG/ML INJ. SYRINGE IVP PRN (09:32)
[2019-07-16] MEDS: DIGOXIN 0.125 MG TABLET PO SCH (10:09)
[2019-07-16] MEDS: CARVEDILOL 3.125 MG TABLET (COREG) PO SCH (10:13)
[2019-07-16] MEDS: ACETAMINOPHEN 650 MG/20.3 ML UDC GT PRN (14:55)
== END 2019-07-16 19:35 | DRG 70 ==
LOC: SED 17:10 → SIC 19:22 → STU 20:28
PROVIDERS: ADMIT Preventive Medicine Preventive Medicine/Occupational Environmental Medicine; ATTEND Preventive Medicine Preventive Medicine/Occupational Environmental Medicine
PROC: 3E0336Z Introduction of Nutritional Substance into Peripheral Vein, Percutaneous Approach (ICD-10-PCS; 2019-07-12)
PROC: 0DH63UZ Insertion of Feeding Device into Stomach, Percutaneous Approach (ICD-10-PCS; principal; 2019-07-12 13:00)
PROC: 30233N1 Transfusion of Nonautologous Red Blood Cells into Peripheral Vein, Percutaneous Approach (ICD-10-PCS; 2019-07-15)
DX: G93.41 Metabolic encephalopathy (principal); E43 Unspecified severe protein-calorie malnutrition; J96.00 Acute respiratory failure, unspecified whether with hypoxia or hypercapnia; J18.9 Pneumonia, unspecified organism; J90 Pleural effusion, not elsewhere classified; R64 Cachexia; Z68.1 Body mass index [BMI] 19.9 or less, adult; C64.9 Malignant neoplasm of unspecified kidney, except renal pelvis; Z66 Do not resuscitate; R13.10 Dysphagia, unspecified; I48.91 Unspecified atrial fibrillation; I11.9 Hypertensive heart disease without heart failure; F32.9 Major depressive disorder, single episode, unspecified; E83.39 Other disorders of phosphorus metabolism; D64.9 Anemia, unspecified; E83.42 Hypomagnesemia; E83.52 Hypercalcemia; E87.6 Hypokalemia; C44.92 Squamous cell carcinoma of skin, unspecified; E88.09 Other disorders of plasma-protein metabolism, not elsewhere classified; R73.9 Hyperglycemia, unspecified; Z88.1 Allergy status to other antibiotic agents; Z90.10 Acquired absence of unspecified breast and nipple; Z85.3 Personal history of malignant neoplasm of breast; Z88.2 Allergy status to sulfonamides; Z91.040 Latex allergy status; Z92.3 Personal history of irradiation
CPT/HCPCS: 36415; 43246; 70450-TC; 71045; 71250-TC; 80048; 80053; 82962; 83605; 83735-TC; 83880; 84100-TC; 84478-TC; 84484; 85025; 85610-TC; 85651-TC; 85730-TC; 86140; 86886; 86900; 86901; 86920; 87040-TC; 87081; 93005; 93306; 96361; 96365; 96372; 99285; G0378; J0630; J1160; J1200; J1815; J1940; J2060; J2175; J2250; J2270; J2543; J3465; J3475; J3480; J3490; J7040; J7050; J7060; J7131; P9021